=== PATIENT | female | born 1980 | race American Indian/Alaskan Native ===

== ENCOUNTER 2017-12-14 06:31 | Day surgery (SDC) | payer OTHER ==
[2017-12-14] MEDS ORDERED: NACL BACTERIOSTATIC INFILTRATI ONE (06:39)
[2017-12-14] MEDS ORDERED: XYLOCAINE 1% 20 mL ONE ×4 (06:56→07:51)
[2017-12-14] MEDS ORDERED: NACL 0.9% 1000 ML 1,000 ML ONE (06:56)
[2017-12-14] MEDS ORDERED: MARCAINE-EPI 0.5%-1:200,000 INFILTRATI ONE ×2 (06:56→06:57)
[2017-12-14] MEDS ORDERED: ADRENALIN ONE ×2 (06:57→07:38)
[2017-12-14] MEDS ORDERED: DEMEROL IV PRN ×2 (07:16→13:30)
[2017-12-14] MEDS ORDERED: DILAUDID IV PRN (07:16)
[2017-12-14] MEDS ORDERED: ZOFRAN IV PRN (07:16)
[2017-12-14] MEDS ORDERED: TORADOL IV PRN (07:16)
[2017-12-14] MEDS ORDERED: DIPRIVAN 10 MG/ML IV ONE ×2 (07:36→10:02)
[2017-12-14] MEDS ORDERED: SUBLIMAZE ONE ×2 (07:36→10:04)
[2017-12-14] MEDS ORDERED: NACL 0.9% 1000 ML 3,000 ML ONE (07:38)
[2017-12-14] MEDS ORDERED: XYLOCAINE 1%/ EPI 1:100,000 INFILTRATI ONE ×2 (07:39→09:06)
[2017-12-14] MEDS ORDERED: NEURONTIN ONE (07:39)
--- NOTE | 2017-12-14 07:59 | Anesthesia Day of Surgery ---
Anesthesia Day of Surgery - Day of Surgery Patient Examined: Yes Patient H&P Reviewed: Yes Patient is NPO: Yes
[2017-12-14] MEDS ORDERED: ANCEF/STERILE WATER 2 GM/20 ML IV NR (08:00)
[2017-12-14] MEDS ORDERED: VERSED IV NR (08:00)
[2017-12-14] MEDS ORDERED: LACTATED RINGERS 1,000 ML IV SCH ×2 (08:00→10:00)
[2017-12-14] MEDS ORDERED: DILAUDID ONE ×2 (08:53→13:20)
[2017-12-14] MEDS ORDERED: ADRENALIN IV ONE (09:04)
[2017-12-14] MEDS ORDERED: XYLOCAINE 1% 20 mL INFILTRATI ONE (09:05)
[2017-12-14] MEDS ORDERED: ROBINUL ONE (11:30)
[2017-12-14] MEDS ORDERED: ZEMURON IV ONE (11:30)
[2017-12-14] MEDS ORDERED: DECADRON ONE (11:50)
[2017-12-14] MEDS ORDERED: NEO SYNEPHRINE/NS Syringe(OR USE) IV ONE (11:50)
[2017-12-14] MEDS ORDERED: ZOFRAN ONE (11:50)
[2017-12-14] MEDS ORDERED: XYLOCAINE MPF 2% ONE (11:50)
[2017-12-14] MEDS ORDERED: BLOXIVERZ ONE (11:50)
--- NOTE | 2017-12-14 13:02 | Operative Report ---
Operative Report Operative Report: Plastic Surgery Operative Note Preoperative Diagnosis: Unacceptable cosmetic appearance Postoperative Diagnosis: Same Procedure: Laser-assisted liposuction of the upper arms, upper back, outer thighs and buttocks Surgeon: Lelo Del Rosario MD Department Store Manager: None Anesthesia: General endotracheal Specimens: None EBL: 50cc Indications: This patient is a 37 year old AAF who presented with complaint of having experienced weight gain after liposuction and fat transfer. She had these procedures several years ago and since then has put on about 20-30 lbs due to the stress of constant travel (She is a airplane flight attendant). She states that this time she gained weight she noticed that her buttocks became disproportionately larger than the rest of her body and make it hard to fit her uniforms. She desires liposuction of this area and her hips to decrease butt and hip projection, as well as her upper arms and back for balance. The benefits and risks of the surgery were discussed with the patient in great detail. Informed consent was obtained and the patient was marked in the preop holding area. Procedure: Patient was brought into the operating room and remained supine on the stretcher. After induction of adequate general endotracheal anesthesia, the patient was placed prone on the OR table and all pressure points were protected/ padded. After the usual prep and drape, 1% lidocaine with epinephrine was used to infiltrate the cannula sites. Then using a 15 blade all incisions were made and we began infiltration with the tumescent solution to all areas. Once adequate time was allowed for epinephrine effect, power assisted lipsuction was performed to the upper arms, upper back, buttocks and outer thighs until the aspirate became bloody. In total 2900 cc of fluid was removed with 2350 cc being pure fat. Once satisfied with the contour, the incisions were then closed with 4-0 Monocryl and covered with ABD's to absorb drainage. Compression garment was placed and the patient was awakened from anesthesia and transferred to recovery in stable condition. There were no complications. All instrument counts were correct at the end of the case.
[2017-12-14] MEDS ORDERED: NORCO 5/325 PO PRN (13:03)
[2017-12-14] MEDS ORDERED: TORADOL ONE (13:20)
[2017-12-14 14:15] VITALS: BP 141/85
--- NOTE | 2017-12-14 14:35 | Anesthesia Day of Surgery ---
Anesthesia Day of Surgery - Day of Surgery Patient Examined: Yes Patient H&P Reviewed: Yes Patient is NPO: Yes
--- NOTE | 2017-12-14 14:36 | Post Anesthesia Evaluation ---
- Post Anesthesia Evaluation Patient Participated: Yes Airway Patent: Yes Stable Respiratory Function: Yes Nausea/Vomiting: No Temp > 96.8F: Yes Pain Manageable: Yes Adequeate Hydration: Yes Anesthesia Complications: No Block Receding Appropriately: Not Applicable
--- NOTE | 2017-12-14 14:39 | Anesthesia Consultation ---
Anesthesia Consult and Med Hx Date of service: 12/14/17 - Airway Anesthetic Teeth Evaluation: Good ROM Head & Neck: Adequate Mental/Hyoid Distance: Adequate Mallampati Class: Class II Intubation Access Assessment: Probably Good - Pulmonary Exam CTA: Yes - Cardiac Exam Cardiac Exam: RRR - Pre-Operative Health Status ASA Pre-Surgery Classification: ASA1 Proposed Anesthetic Plan: General - Pulmonary Hx Smoking: No Hx Respiratory Symptoms: No - Cardiovascular System Hx Hypertension: No Hx Heart Attack/AMI: No - Central Nervous System Hx Seizures: No CVA: No Hx Psychiatric Problems: No - Gastrointestinal Hx Gastroesophageal Reflux Disease: No - Endocrine Hx Renal Disease: No Hx Liver Disease: No Hx Insulin Dependent Diabetes: No Hx Non-Insulin Dependent Diabetes: No Hx Thyroid Disease: No - Other Systems Hx Alcohol Use: Yes (OCCAS) Hx Substance Use: No Hx Cancer: No
== END 2017-12-14 17:15 | disposition home or self-care (01) ==
LOC: OR 06:31
PROVIDERS: ATTEND Plastic Surgery
DX: Z41.1 Encounter for cosmetic surgery (principal); Z72.89 Other problems related to lifestyle; Z79.899 Other long term (current) drug therapy
CPT/HCPCS: 15877; 15878; 15879; 81025; J0171; J1100; J1170; J1885; J2250; J2370; J2405; J2704; J2710; J3010; J7030; J7120